=== PATIENT | female | born 1970 | race American Indian/Alaskan Native ===

== ENCOUNTER 2020-12-23 07:38 | Emergency (ER) | payer OTHER ==
[2020-12-23 07:47] VITALS: BP 151/96
--- NOTE | 2020-12-23 19:33 | Emergency Department Report ---
ED Fall HPI - General Chief Complaint: Fall Stated Complaint: BODY PAIN/FALL Source: patient Mode of arrival: Ambulatory - History of Present Illness Initial Comments: 50-year-old female presents to the ER today with complaints of low back pain and right groin pain after an accidental fall 3 days ago. She states that she was in [employer] when she slipped on a wet floor and fell. She states that she fell onto her buttocks and backwards. She states that she has been having pain in her lower back and her right groin since the injury but the pain in her lower back seems to be improving but the pain in her right groin has been persistent. She states that the pain is worse with ambulating, weightbearing and movement. She denies any head injury. She denies any abdominal pain, chest pain, neck pain, bowel or bladder incontinence, urinary tension or constipation, saddle anesthesia, lower extremity numbness, tingling or weakness any abnormal vaginal bleeding or UTI symptoms. MD Complaint: fall -: days(s) (3) - Related Data Previous Rx's Medication Instructions Recorded Last Taken Type Ketorolac [Toradol] 10 mg PO Q6H PRN #20 tablet 12/23/20 Unknown Rx methOCARBAMOL [Robaxin TAB] 750 mg PO Q8H PRN #30 tablet 12/23/20 Unknown Rx Allergies Allergy/AdvReac Type Severity Reaction Status Date / Time No Known Allergies Allergy Unverified 12/23/20 07:44 ED Review of Systems ROS: Stated complaint: BODY PAIN/FALL Other details as noted in HPI Comment: All other systems reviewed and negative Constitutional: denies: chills, fever Eyes: denies: eye pain, eye discharge, vision change ENT: denies: ear pain, throat pain, dental pain, hearing loss, epistaxis, congestion Respiratory: denies: cough, shortness of breath, SOB with exertion, SOB at rest, wheezing Cardiovascular: denies: chest pain, palpitations, dyspnea on exertion, edema, syncope, paroxysmal nocturnal dyspnea Gastrointestinal: denies: nausea, vomiting, diarrhea, constipation, hematemesis, melena, hematochezia Genitourinary: denies: urgency, dysuria, frequency, hematuria, discharge, abnormal menses, dyspareunia Musculoskeletal: back pain, arthralgia Neurological: denies: headache, weakness, numbness, paresthesias, confusion, abnormal gait, vertigo Psychiatric: denies: anxiety, depression, auditory hallucinations, visual hallucinations, homicidal thoughts, suicidal thoughts Hematological/Lymphatic: denies: easy bleeding, easy bruising, swollen glands ED Past Medical Hx - Past Medical History Previous Medical History?: Yes Hx Hypertension: Yes - Surgical History Past Surgical History?: No - Medications Home Medications: Home Medications Medication Instructions Recorded Confirmed Last Taken Type Ketorolac [Toradol] 10 mg PO Q6H PRN #20 tablet 12/23/20 Unknown Rx methOCARBAMOL [Robaxin TAB] 750 mg PO Q8H PRN #30 tablet 12/23/20 Unknown Rx ED Physical Exam - General Limitations: No Limitations General appearance: alert, in no apparent distress - Head Head exam: Present: atraumatic, normocephalic, normal inspection - Eye Eye exam: Present: normal appearance, PERRL, EOMI Pupils: Present: normal accommodation - ENT ENT exam: Present: normal exam, mucous membranes moist - Neck Neck exam: Present: normal inspection, full ROM - Respiratory Respiratory exam: Present: normal lung sounds bilaterally. Absent: respiratory distress - Cardiovascular Cardiovascular Exam: Present: regular rate, normal rhythm, normal heart sounds - GI/Abdominal GI/Abdominal exam: Present: soft. Absent: distended, tenderness, guarding, rebound - Expanded Lower Extremity Exam Right Hip exam: Present: full ROM (but it is painful with internal and external rotation and flexion), tenderness (right anterior hip/groin area). Absent: swelling, abrasion, laceration, ecchymosis, deformity, crepidus, dislocation, erythema, external rotation, internal rotation, shortening, pelvic stability Upper Leg exam: Present: normal inspection, full ROM. Absent: tenderness - Back Exam Back exam: Present: normal inspection, full ROM. Absent: tenderness, paraspinal tenderness, vertebral tenderness - Neurological Exam Neurological exam: Present: alert, oriented X3, CN II-XII intact, normal gait - Psychiatric Psychiatric exam: Present: normal affect, normal mood - Skin Skin exam: Present: intact ED Course Vital Signs 12/23/20 07:45 Temperature 98.1 F Pulse Rate 83 Respiratory 13 Rate Blood Pressure 151/96 O2 Sat by Pulse 100 Oximetry Critical care attestation.: If time is entered above; I have spent that time in minutes in the direct care of this critically ill patient, excluding procedure time. ED Disposition Clinical Impression: Strain of hip, Lumbar contusion Disposition: DC-01 TO HOME OR SELFCARE Is pt being admited?: No Does the pt Need Aspirin: No Condition: Stable Instructions: Hip Sprain, Osteoarthritis, Contusion Additional Instructions: Take the Toradol and the muscle relaxer as prescribed. Recommend that you follow-up with currency exchange specialist on your discharge instructions in 1 week. Return to the ER if your symptoms changes or worsens in any way. Prescriptions: methOCARBAMOL [Robaxin TAB] 750 mg PO Q8H PRN #30 tablet PRN Reason: Muscle Spasm Ketorolac [Toradol] 10 mg PO Q6H PRN #20 tablet PRN Reason: Pain Referrals: DAVIDA CARDENAS MD [Staff Physician] - 3-5 Days Forms: Work/School Release Form(ED) Time of Disposition: 20:08
--- NOTE | 2020-12-23 19:58 | XRay Report ---
Right hip-2 views INDICATION: fall/right groin pain. COMPARISON: None. IMPRESSION: No acute osseous abnormality. Soft tissues are normal. Normal alignment. 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 Signer Name: Dre Asencio MD Signed: 12/23/2020 7:54 PM Workstation Name: [id number]
== END 2020-12-23 20:10 | disposition home or self-care (01) ==
LOC: ED 07:38
DX: S76.011A Strain of muscle, fascia and tendon of right hip, initial encounter (principal); S30.0XXA Contusion of lower back and pelvis, initial encounter; I10 Essential (primary) hypertension; Z79.899 Other long term (current) drug therapy; W01.0XXA Fall on same level from slipping, tripping and stumbling without subsequent striking against object, initial encounter; Y93.89 Activity, other specified; Y92.89 Other specified places as the place of occurrence of the external cause; Y99.8 Other external cause status